=== PATIENT | male | born 1975 | race Caucasian/White ===

== ENCOUNTER 2018-08-01 01:00 | Emergency (ER) | payer BC ==
[2018-08-01] MEDS ORDERED: Sodium Chloride 0.9% 10 ML Syringe FLUSH PRN (01:11)
[2018-08-01] MEDS ORDERED: Sodium Chloride 0.9% 2.5 ML Syringe FLUSH PRN (01:11)
[2018-08-01] MEDS ORDERED: Sodium Chloride 0.9% 1,000 ML IV ONE (01:12)
[2018-08-01] MEDS ORDERED: Lactated Ringers 1,000 ML IV SCH (01:15)
--- NOTE | 2018-08-01 01:18 | EDM.PDOC ---
ED HPI GENERAL MEDICAL PROBLEM - General Chief Complaint: Lower Extremity Injury/Pain Stated Complaint: POSSIBLE BREAK IN LEFT LEG Time Seen by Provider: 08/01/18 01:10 - History of Present Illness INITIAL COMMENTS - FREE TEXT/NARRATIVE: HISTORY AND PHYSICAL: History of present illness: The patient is a 42-year-old male with no stated medical history and presents via EMS after falling his own height after mis-stepping on a deck and he has left leg bending backwards. He complains of pain at his left femur just above the knee. He denies any distal leg ankle or foot pain and no proximal hip pain. He did not pass out or blackout and says he did not hit his head neck or back and has no discomfort there. He has no nausea no abdominal complaints and no chest complaints. Patient does admit to having a few beers this evening. EMS gave fentanyl and Zofran en route. He denies any other extremity complaints. He denies any neurosensory changes in the distal left leg and foot. Review of systems: As per history of present illness and below otherwise all systems reviewed and negative. Past medical history: As per history of present illness and as reviewed below otherwise noncontributory. Surgical history: As per history of present illness and as reviewed below otherwise noncontributory. Social history: No reported history of drug or alcohol abuse. Family history: As per history of present illness and as reviewed below otherwise noncontributory. Physical exam: General: Well-developed well-nourished man speaking clearly and easily in the ED and is alert and oriented. Vital signs were noted by me. He is uncomfortable with any movements of his left lower extremity but is moving all other extremities easily. HEENT: Atraumatic, normocephalic, pupils reactive, negative for conjunctival pallor or scleral icterus, mucous membranes tacky, throat clear, neck supple, nontender, trachea midline. Her are no midline step-offs tenderness defects of the cervical spine Lungs: Clear to auscultation, breath sounds equal bilaterally, chest nontender. No Defects deformities crepitus appreciated Heart: S1S2, regular rate and rhythm no overt murmurs Abdomen: Soft, nondistended, nontender. Negative for masses or hepatosplenomegaly. NABS Pelvis: Stable nontender. No lateral hip tenderness on the left Genitourinary: Deferred. Rectal: Deferred. Extremities: Atraumatic full range of motion of all extremities with the exception of the left lower extremity where there is decreased range of motion at the upper left leg just above the knee and complains of tenderness and there is soft tissue swelling appreciated in this region. There is no tenderness at the lateral hip no patella tenderness and no distal tib-fib ankle foot or toe tenderness on the left. Pulses are triphasic by Doppler and cap Refill is normal. There are no open areas appreciated on the thigh. Neurosensory is grossly intact in the legs are, negative for cords or calf pain. Neurovascular unremarkable. There is a small superficial abrasion seen at the left elbow without any soft tissue swelling tenderness defects or deformities and there is full range of motion at this elbow Neuro: Awake, alert, oriented. Cranial nerves II through XII unremarkable. . Motor and sensory unremarkable throughout. Exam nonfocal. Back: There are no midline step-offs in his defects of the thoracic or lumbar spine no posterior pelvis or posterior rib tenderness and no soft tissue injuries are appreciated Diagnostics: CBC CMP INR EtOH level I view chest x-ray 1 view pelvis left femur x-ray accu check Therapeutics: Patient received fentanyl and Zofran in route, IV fluids maintenance IV fluids 0207: Case was discussed with Dr. Posey at [facility] ER and he accepts the patient for transfer. He is aware that the patient is not tolerating much manipulation or splinting of this area and we will pillows splint the patient in a position of comfort. He is comfortable with this. All films have been sent to [facility] and labs will continue to be monitored and forwarded to the receiving hospital. The patient is aware of these testing results and the need for transfer as we do not have orthopedics available this evening. He is also aware that he is nothing by mouth Impression: Distal left femur fracture, comminuted and displaced Definitive disposition and diagnosis as appropriate pending reevaluation and review of above. left thight Pain Score (Numeric/FACES): 5 - Related Data Allergies Allergy/AdvReac Type Severity Reaction Status Date / Time No Known Allergies Allergy Verified 08/01/18 01:13 Home Meds: Home Meds . [No Known Home Meds] 08/01/18 [History] Review of Systems - Review of Systems Review Of Systems: ROS reveals no pertinent complaints other than HPI. ED EXAM, GENERAL - Physical Exam Exam: See Below (See dictation) Course - Vital Signs Last Recorded V/S: Last Vital Signs Temp 36.6 C 08/01/18 01:09 Pulse 95 08/01/18 02:06 Resp 20 08/01/18 02:06 BP 104/69 08/01/18 02:06 Pulse Ox 97 08/01/18 02:06 - Orders/Labs/Meds Orders: Active Orders 24 hr Category Date Time Status Blood Glucose Check, Bedside [RC] ONETIME Care 08/01/18 01:11 Active Chest 1V Frontal [CR] Stat Exams 08/01/18 01:11 Ordered Femur Min 2V Lt [CR] Stat Exams 08/01/18 01:11 Ordered Pelvis 1V or 2V [CR] Stat Exams 08/01/18 01:11 Ordered COMPREHENSIVE METABOLIC PN,CMP [CHEM] Stat Lab 08/01/18 01:50 Received ETHANOL BLOOD MEDICAL [CHEM] Stat Lab 08/01/18 01:50 Received INR,PT,PROTHROMBIN TIME [COAG] Stat Lab 08/01/18 01:50 Received Lactated Ringers [Ringers, Lactated] 1,000 ml Med 08/01/18 01:15 Active IV ASDIRECTED Sodium Chloride 0.9% [Normal Saline] 1,000 ml Med 08/01/18 01:12 Active IV STAT Sodium Chloride 0.9% [Saline Flush] Med 08/01/18 01:11 Active 10 ml FLUSH ASDIRECTED PRN Sodium Chloride 0.9% [Saline Flush] Med 08/01/18 01:11 Active 2.5 ml FLUSH ASDIRECTED PRN Saline Lock Insert [OM.PC] Stat Oth 08/01/18 01:10 Ordered Medication Orders Lactated Ringer's (Ringers, Lactated) 1,000 mls @ 150 mls/hr IV ASDIRECTED MANN Last Admin: 08/01/18 02:03 Dose: 150 mls/hr Sodium Chloride (Normal Saline) 1,000 mls @ 999 mls/hr IV STAT ONE Stop: 08/01/18 02:12 Last Admin: 08/01/18 01:19 Dose: 999 mls/hr Sodium Chloride (Saline Flush) 10 ml FLUSH ASDIRECTED PRN PRN Reason: Keep Vein Open Sodium Chloride (Saline Flush) 2.5 ml FLUSH ASDIRECTED PRN PRN Reason: Keep Vein Open Labs: Laboratory Tests 08/01/18 08/01/18 Range/Units 01:14 01:50 WBC 4.46 (4.0-11.0) K/uL RBC 4.21 L (4.50-5.90) M/uL Hgb 13.5 (13.0-17.0) g/dL Hct 39.5 (38.0-50.0) % MCV 93.8 (80.0-98.0) fL MCH 32.1 H (27.0-32.0) pg MCHC 34.2 (31.0-37.0) g/dL RDW Std Deviation 42.3 (28.0-62.0) fl RDW Coeff of Randi 12 (11.0-15.0) % Plt Count 201 (150-400) K/uL MPV 10.70 (7.40-12.00) fL Neut % (Auto) 59.2 (48.0-80.0) % Lymph % (Auto) 29.1 (16.0-40.0) % [place] % (Auto) 9.9 (0.0-15.0) % Eos % (Auto) 1.6 (0.0-7.0) % Baso % (Auto) 0.2 (0.0-1.5) % Neut # (Auto) 2.6 (1.4-5.7) K/uL Lymph # (Auto) 1.3 (0.6-2.4) K/uL [place] # (Auto) 0.4 (0.0-0.8) K/uL Eos # (Auto) 0.1 (0.0-0.7) K/uL Baso # (Auto) 0.0 (0.0-0.1) K/uL Nucleated RBC % 0.0 /100WBC Nucleated RBCs # 0 K/uL POC Glucose 110 (60-110) mg/dL Meds: Medications Generic Name Dose Route Start Last Admin Trade Name Freq PRN Reason Stop Dose Admin Lactated Ringer's 1,000 mls @ 150 mls/hr 08/01/18 01:15 08/01/18 02:03 Ringers, Lactated IV 150 mls/hr ASDIRECTED MANN Administration Sodium Chloride 1,000 mls @ 999 mls/hr 08/01/18 01:12 08/01/18 01:19 Normal Saline IV 08/01/18 02:12 999 mls/hr STAT ONE Administration Sodium Chloride 10 ml 08/01/18 01:11 Saline Flush FLUSH ASDIRECTED PRN Keep Vein Open Sodium Chloride 2.5 ml 08/01/18 01:11 Saline Flush FLUSH ASDIRECTED PRN Keep Vein Open Discontinued Medications Generic Name Dose Route Start Last Admin Trade Name Cruz PRN Reason Stop Dose Admin Hydromorphone HCl 1 mg 08/01/18 01:22 08/01/18 01:24 Dilaudid IVPUSH 08/01/18 01:23 1 mg ONETIME ONE Administration Hydromorphone HCl Confirm 08/01/18 01:23 08/01/18 01:30 Dilaudid Administered 08/01/18 01:24 Not Given Dose 1 mg .ROUTE .STK-MED ONE Departure - Departure Time of Disposition: 02:12 Disposition: DC/Tfer to Acute Hospital 02 Condition: Good Clinical Impression: Fracture of left femur Qualifiers: Encounter type: initial encounter Fracture type: closed Fracture morphology: comminuted Fracture alignment: displaced - Discharge Information Referrals: PCP,None [Primary Care Provider] - Forms: ED Department Discharge - My Orders Last 24 Hours: My Active Orders 08/01/18 01:10 Saline Lock Insert [OM.PC] Stat 08/01/18 01:11 Blood Glucose Check, Bedside [RC] ONETIME Chest 1V Frontal [CR] Stat Femur Min 2V Lt [CR] Stat Pelvis 1V or 2V [CR] Stat Sodium Chloride 0.9% [Saline Flush] 10 ml FLUSH ASDIRECTED PRN Sodium Chloride 0.9% [Saline Flush] 2.5 ml FLUSH ASDIRECTED PRN 08/01/18 01:12 Sodium Chloride 0.9% [Normal Saline] 1,000 ml IV STAT 08/01/18 01:15 Lactated Ringers [Ringers, Lactated] 1,000 ml IV ASDIRECTED 08/01/18 01:50 COMPREHENSIVE METABOLIC PN,CMP [CHEM] Stat ETHANOL BLOOD MEDICAL [CHEM] Stat INR,PT,PROTHROMBIN TIME [COAG] Stat - Assessment/Plan Last 24 Hours: My Active Orders 08/01/18 01:10 Saline Lock Insert [OM.PC] Stat 08/01/18 01:11 Blood Glucose Check, Bedside [RC] ONETIME Chest 1V Frontal [CR] Stat Femur Min 2V Lt [CR] Stat Pelvis 1V or 2V [CR] Stat Sodium Chloride 0.9% [Saline Flush] 10 ml FLUSH ASDIRECTED PRN Sodium Chloride 0.9% [Saline Flush] 2.5 ml FLUSH ASDIRECTED PRN 08/01/18 01:12 Sodium Chloride 0.9% [Normal Saline] 1,000 ml IV STAT 08/01/18 01:15 Lactated Ringers [Ringers, Lactated] 1,000 ml IV ASDIRECTED 08/01/18 01:50 COMPREHENSIVE METABOLIC PN,CMP [CHEM] Stat ETHANOL BLOOD MEDICAL [CHEM] Stat INR,PT,PROTHROMBIN TIME [COAG] Stat
[2018-08-01] MEDS ORDERED: HYDROmorphone 1 MG/ML Syringe IVPUSH ONE ×2 (01:22→02:53)
[2018-08-01] MEDS ORDERED: HYDROmorphone 1 MG/ML Syringe ONE (01:23)
[2018-08-01 02:21] LABS: CHLORIDE,CL 106 mmol/L (98-107); SODIUM,NA 140 mmol/L (136-148)
--- NOTE | 2018-08-02 15:01 | CR ---
EXAM DATE: 08/01/18 PATIENT'S AGE: 42 Patient: ZHANNA MERIRLL Facility: [place], [place] Site . Site : 1975 Study: XRay Chest -08/01/2018 1:56:53 AM Ordering Physician: Tiffanie Meyers Final Report: INDICATION: Pain following fall TECHNIQUE: Chest 1 view. COMPARISON: None FINDINGS: Cardiovascular and mediastinum: Heart size and vasculature are normal in caliber and appearance. Mediastinum is within normal limits. Lungs and pleural space: Lungs are clear. No sign of infiltrate or mass. No sign of pleural effusion. No pneumothorax. The left costophrenic angle is not included on the image. Bones and soft tissues: Probable remote fracture right 9th rib IMPRESSION: Oval remote fracture right 9th rib. Dictated by Ki Yates MD @ 08/01/2018 1:58:57 AM Dictated by: Ki Yates MD @ 08/01/2018 01:59:06 ----- ADDENDUM ----- The impression should state: Probable remote right 9th rib fracture. Dictated by Ki Yates MD @ Aug 01 2018 1:59AM (Electronic Signature) Report Signed by Proxy. ROC[facility]FE[facility]ON[facility]ATION HOSPITALAbhilash
--- NOTE | 2018-08-02 15:02 | CR ---
EXAM DATE: 08/01/18 PATIENT'S AGE: 42 Patient: ZHANNA MERRILL Facility: [place], [place] Site . Site : 1975 Study: XRay Pelvis-08/01/2018 1:57:22 AM Ordering Physician: Tiffanie Meyers Final Report: INDICATION: Pain after fall COMPARISON: None available. FINDINGS: Portable AP and lateral views of the mid and distal left femur were obtained along with an portable AP view of the pelvis which is moderately rotated towards the left. There is an acute, comminuted, oblique fracture of the distal shaft of the femur with 30 degrees posterior angulation of the major distal fracture fragment. A large butterfly fragment is displaced laterally and dorsally from the fracture site. I do not see definite extension of the fracture into the articular surfaces or the intercondylar region. The proximal femoral shaft is not fully examined in the lateral projection, but it appears to be intact on the views submitted. There is no sign of radiopaque foreign body. There is moderate soft tissue swelling overlying the fracture site. No significant degenerative disease is seen in the visualized portions of the hip and knee. IMPRESSION: ACUTE, COMMINUTED, OBLIQUE FRACTURE OF THE DISTAL FEMORAL SHAFT WITH MILD POSTERIOR ANGULATION OF THE MAJOR DISTAL FRACTURE FRAGMENT. Dictated by Gasper Laguerre MD @ Aug 01 2018 2:09AM (Electronic Signature) Report Signed by Proxy. SOMMER
--- NOTE | 2018-08-02 15:03 | CR ---
EXAM DATE: 08/01/18 PATIENT'S AGE: 42 Patient: ZHANNA MERRILL Facility: [place], [place] Site . Site : 1975 Study: XRay -08/01/2018 1:57:37 AM Ordering Physician: Tiffanie Meyers Final Report: INDICATION: Pain following fall TECHNIQUE: Two views left femur COMPARISON: None FINDINGS: Bones: Comminuted displaced fracture distal shaft of the femur. Joint spaces: Unremarkable. Soft tissues: Unremarkable. IMPRESSION: Comminuted displaced fracture distal shaft of the femur. Dictated by Ki Yates MD @ 08/01/2018 2:01:47 AM Dictated by: Ki Yates MD @ 08/01/2018 02:01:50 (Electronic Signature) Report Signed by Proxy. SOMMER
== END 2018-08-01 03:15 ==
LOC: MW.ED 01:00
DX: S72.402A Unspecified fracture of lower end of left femur, initial encounter for closed fracture (principal); F17.210 Nicotine dependence, cigarettes, uncomplicated; W01.0XXA Fall on same level from slipping, tripping and stumbling without subsequent striking against object, initial encounter
CPT/HCPCS: 36415; 71045; 72170; 73552; 80053; 82962; 85025; 85610; 96361; 96374; 96376; 99285; G0480; J1170; J7040; J7120; 99284

== ENCOUNTER 2018-11-17 11:07 | Day surgery (SDC) | payer BC ==
[~2018-11-17 11:07] MED LIST: Bupivacaine 0.5% 10 ML SDV ONE; Lactated Ringers 1,000 ML IV SCH; ceFAZolin 2 GM in Premix Bag 1 BAG IV SCH
--- NOTE | 2018-11-17 11:55 | PCM.PREANE ---
Preanesthetic Assessment - Procedure Proposed Procedure: for removal hardware left knee area - Anesthesia/Transfusion/Family Hx Anesthesia History: Prior Anesthesia Without Reaction (left arm, left femur : No anesthesia isues) Family History of Anesthesia Reaction: No Transfusion History: No Prior Transfusion(s) - Review of Systems General: No Symptoms Pulmonary: No Symptoms (smoker) Cardiovascular: No Symptoms Gastrointestinal: No Symptoms (occasional GERD--been having consistent gerd last few days, though) Neurological: No Symptoms (history concussion 1987 without sequelae) Other: Reports: None (ETOH overuse, mild fatty liver) - Physical Assessment NPO Status Date: 11/17/18 NPO Status Time: 00:00 Pulse: 75 O2 Sat by Pulse Oximetry: 96 Respiratory Rate: 18 Blood Pressure: 127/92 Temperature: 35.8 C Height: 1.83 m Weight: 95.254 kg ASA Class: 2 Mental Status: Alert & Oriented x3 Airway Class: Mallampati = 2 Dentition: Reports: Normal Dentition Thyro-Mental Finger Breadths: 2 Mouth Opening Finger Breadths: 3 ROM/Head Extension: Full Lungs: Clear to Auscultation, Normal Respiratory Effort Cardiovascular: Regular Rate, Regular Rhythm, No Murmurs - Lab Values: CBC and CMP 08/01/18 positive for ETOH - Allergies Allergies/Adverse Reactions: Allergies Allergy/AdvReac Type Severity Reaction Status Date / Time No Known Allergies Allergy Verified 11/12/18 11:29 - Blood Blood Available: No Product(s) Available: None - Anesthesia Plan Pre-Op Medication Ordered: None - Acknowledgements Anesthesia Type Planned: General Anesthesia (Plan: GA with ETT due to recent few days' GERD.. Discussed with patient and . All questions answered. Consent signed.) Pt an Appropriate Candidate for the Planned Anesthesia: Yes Alternatives and Risks of Anesthesia Discussed w Pt/Guardian: Yes Pt/Guardian Understands and Agrees with Anesthesia Plan: Yes PreAnesthesia Questionnaire - Past Health History Medical/Surgical History: Denies Medical/Surgical History Musculoskeletal History: Reports: Fracture Other Musculoskeletal History: left leg and bilateral arms Neurological History: Reports: Concussion - Infectious Disease History Infectious Disease History: Reports: Chicken Pox - Past Surgical History Head Surgeries/Procedures: Reports: None Musculoskeletal Surgical History: Reports: ORIF, Other (See Below) Other Musculoskeletal Surgeries/Procedures:: ORIF left femur (has hardware), closed reduction left arm - SUBSTANCE USE Smoking Status *Q: Former Smoker Tobacco Use Within Last Twelve Months: Cigarettes Recreational Drug Use History: No - HOME MEDS Home Medications: Home Meds Acetaminophen [Tylenol] 1 - 2 tab PO ASDIRECTED PRN 11/12/18 [History] - CURRENT (IN HOUSE) MEDS Current Meds: Current Medications Hydrocodone Bitart/Acetaminophen ([place] 325-5 Mg) 1 - 2 tab PO Q4H PRN PRN Reason: Pain Cefazolin Sodium/Dextrose 2 gm (/ Premix) 50 mls @ 100 mls/hr IV ONCALL MANN Lactated Ringer's (Ringers, Lactated) 1,000 mls @ 100 mls/hr IV ASDIRECTED MANN Discontinued Medications Bupivacaine HCl (Sensorcaine-Mpf 0.5%) Confirm Administered Dose 10 ml .ROUTE .STK-MED ONE Stop: 11/17/18 10:37
[2018-11-17] MEDS ORDERED: Acetaminophen/HYDROcodone 325-5 MG Tab PO PRN (12:00)
[2018-11-17] MEDS ORDERED: fentaNYL 100 MCG/2 ML SDV ONE ×3 (12:04→14:30)
[2018-11-17] MEDS ORDERED: Propofol 200 MG/20 ML SDV ONE (12:04)
[2018-11-17] MEDS ORDERED: Midazolam 1 MG/ML 2 ML SDV ONE (12:04)
[2018-11-17] MEDS ORDERED: Promethazine 25 MG/ML SDV IM ONE (13:52)
[2018-11-17] MEDS ORDERED: HYDROmorphone 2 MG/ML SDV IVPUSH ONE (13:52)
[2018-11-17] MEDS ORDERED: Ondansetron 4 MG/2 ML SDV IVPUSH ONE (13:52)
[2018-11-17] MEDS ORDERED: Meperidine PF 25 MG/ML Syringe IVPUSH ONE (13:52)
[2018-11-17] MEDS ORDERED: Glycopyrrolate 0.2 MG/ML SDV ONE (13:53)
[2018-11-17] MEDS ORDERED: Succinylcholine 200 MG/10 ML MDV ONE (13:53)
[2018-11-17] MEDS ORDERED: Rocuronium 10 MG/ML 10 ML Syringe ONE (13:53)
[2018-11-17] MEDS ORDERED: Neostigmine Methylsulfate 1 MG/ML 5 ML Syringe ONE (13:53)
[2018-11-17] MEDS ORDERED: Dexamethasone 4 MG/ML 5 ML MDV ONE (13:54)
[2018-11-17] MEDS ORDERED: HYDROmorphone 2 MG/ML Syringe ONE (14:10)
[2018-11-17] MEDS ORDERED: Acetaminophen 1,000 MG in Premix Bag 1 BAG IV ONE (14:26)
[2018-11-17] MEDS: fentaNYL 100 MCG/2 ML SDV IVPUSH ONE ×2 (14:32→14:38)
--- NOTE | 2018-11-17 14:33 | PCM.OPNOTE ---
- General Post-Op/Procedure Note Date of Surgery/Procedure: 11/17/18 Operative Procedure(s): HWR left femur Post-Op Diagnosis: Painful retained HW left femur Anesthesia Technique: General ET Tube Primary Surgeon: Radha Lord Fire Pilot: Sandie Mora in mLs: 5 Condition: Good Free Text/Narrative:: tt=0 min #[id number]
--- NOTE | 2018-11-17 15:28 | OR ---
SURGEON: Radha Lord MD DATE OF PROCEDURE: 11/17/2018 PREOPERATIVE DIAGNOSIS: Painful retained hardware, left femur. POSTOPERATIVE DIAGNOSIS: Painful retained hardware, left femur. PROCEDURE: Removal of hardware, left femur, deep implant. DRESS FINISHER: Sandie Mora PA-C. ANESTHESIA: General. ESTIMATED BLOOD LOSS: 10 mL. TOURNIQUET TIME: 0 minutes. COMPLICATIONS: None. DVT PROPHYLAXIS: Not indicated. IMPLANTS USED: None. BRIEF HISTORY: Yg is a 43-year-old male who underwent open reduction and internal fixation of a left femur fracture at [facility] in [place]. He has continued to have pain along the medial aspect of his knee, presumed to be due to screws that are slightly long in length. He has had aggressive physical therapy to regain motion in his knee; however, he has been unable to get past 75 degrees. His femur fracture on his last visit showed incomplete healing. Due to the continued pain along the medial aspect of the knee, I recommended that he undergo removal of the hardware. The risks and goals of the procedure were discussed with the patient and were documented preoperatively. He agreed to proceed. DESCRIPTION OF PROCEDURE: The patient was properly identified and brought to the operating room. He was transferred from the OR cart and placed on operating table in a supine position. General anesthesia was administered. After adequate anesthesia was obtained, a well-padded tourniquet was applied to the left lower extremity. The knee was then gently manipulated. The hip and knee were flexed and gentle downward pressure was applied to the low leg. I did not anticipate a formal knee manipulation. However, with gentle pressure, was able to palpate the release of adhesions in the knee. At the completion, I was able to flex the knee to approximately 150 degrees. His knee was then examined. He was stable to varus and valgus stressing and appeared to have no significant anterior translation. The left lower extremity was then prepped in standard fashion using ChloraPrep solution. It was then sterilely draped. A time-out was performed to ensure correct site and procedure. Preoperative antibiotics were given. The surgical site had been marked preoperatively. The site of the painful screws had also been marked preoperatively. An incision was made over the lateral aspect of the distal thigh, over the site of the previous incision. Subcutaneous tissues were then incised. The iliotibial band was then incised and the hardware was identified. The two distal most screws, both anterior and posterior were then removed under C-arm guidance. Final C-arm images confirmed removal of the prominent screws. The remainder of the screws appeared intact. The fracture also remained in good alignment. The wound was then copiously irrigated with saline solution. 0 Vicryl was used to close the fascial layer. Subcutaneous tissues were closed with 2-0 Vicryl and the skin was closed with neal. Xeroform gauze was placed over the wound and a bulky dressing was applied. He was awakened from his anesthetic and transferred back to the operating room cart. He was brought to recovery room in stable condition. All needle and sponge counts were correct. STANLEY / MELINA /[id number]
--- NOTE | 2018-11-17 15:34 | PCM.POSTAN ---
POST ANESTHESIA ASSESSMENT - MENTAL STATUS Mental Status: Alert, Oriented - RESPIRATORY Respiratory Status: Respiratory Rate WNL, Airway Patent, O2 Saturation Stable - CARDIOVASCULAR CV Status: Pulse Rate WNL, Blood Pressure Stable - GASTROINTESTINAL GI Status: No Symptoms - POST OP HYDRATION Hydration Status: Adequate & Stable
--- NOTE | 2018-11-17 15:34 | PCM48HPAN ---
Post Anesthesia Note - EVALUATION WITHIN 48HRS OF ANESTHETIC Vital Signs in Normal Range: Yes Patient Participated in Evaluation: Yes Respiratory Function Stable: Yes Airway Patent: Yes Cardiovascular Function Stable: Yes Hydration Status Stable: Yes Pain Control Satisfactory: Yes Nausea and Vomiting Control Satisfactory: Yes Mental Status Recovered: Yes Pulse Rate: 75 Resp Rate: 94 Temperature: 96.4 F Blood Pressure: 127/92
--- NOTE | 2018-11-17 16:13 | CR ---
EXAMINATION: Left femur HISTORY: Hardware removal COMPARISON: 11/05/2018 TECHNIQUE: 4 fluoroscopic images provided FINDINGS/IMPRESSION: Operative control films demonstrate left screw and plate hardware fixation. The inferior 2 screws have intervally been removed.
== END 2018-11-17 15:40 | disposition home or self-care (01) ==
LOC: MW.SDS 11:07
PROVIDERS: ATTEND Orthopaedic Surgery
DX: T84.84XA Pain due to internal orthopedic prosthetic devices, implants and grafts, initial encounter (principal); S72.92XA Unspecified fracture of left femur, initial encounter for closed fracture; X58.XXXA Exposure to other specified factors, initial encounter; Z87.891 Personal history of nicotine dependence
CPT/HCPCS: 20680; 76000; A9270; J0131; J0330; J1100; J1170; J2250; J2704; J3010; J3490; J7120

== ENCOUNTER 2022-06-23 11:01 | Day surgery (SDC) | payer BC ==
[~2022-06-23 11:01] MED LIST changes: -Bupivacaine 0.5% 10 ML SDV ONE; -ceFAZolin 2 GM in Premix Bag 1 BAG IV SCH
[2022-06-23] MEDS ORDERED: Midazolam 1 MG/ML 2 ML SDV ONE (11:50)
[2022-06-23] MEDS ORDERED: Propofol 200 MG/20 ML SDV ONE ×2 (13:09→14:10)
[2022-06-23] MEDS ORDERED: fentaNYL 100 MCG/2 ML SDV ONE (13:09)
[2022-06-23] MEDS ORDERED: Lactated Ringers 1,000 ML IV SCH (14:30)
== END 2022-06-23 14:55 | disposition home or self-care (01) ==
LOC: MW.SDS 11:01
PROVIDERS: ATTEND Surgery
DX: D12.5 Benign neoplasm of sigmoid colon (principal); D12.8 Benign neoplasm of rectum; J18.9 Pneumonia, unspecified organism; F17.210 Nicotine dependence, cigarettes, uncomplicated; Z79.2 Long term (current) use of antibiotics; Z79.899 Other long term (current) drug therapy
CPT/HCPCS: 45380; J2250; J2704; J3010; J7120